=== PATIENT | male | born 1955 | race Caucasian/White ===

== ENCOUNTER → 2017-06-12 | Outpatient (CLI) | payer MEDICARE, BC ==
[~2017-06-12] MED LIST: AMBIEN 10MG10 MG PO; ASPIRIN E.C. 8181 MG PO; ATIVAN 0.50.5 MG/TAB PO; CEFTIN500 MG PO; FLEXERIL 1010 MG/TAB PO; HALCION 0.0.125 MG/T PO; KLONOPIN 0.5MG0.5 MG PO; NORCO 325 MG-51 TAB PO; VALIUM 5MG T5 MG/TAB
== END ==
LOC: COL.RAD 09:27
DX: M19.019 Primary osteoarthritis, unspecified shoulder (principal); M19.049 Primary osteoarthritis, unspecified hand; M17.9 Osteoarthritis of knee, unspecified; Z85.038 Personal history of other malignant neoplasm of large intestine
CPT/HCPCS: A9503

== ENCOUNTER → 2017-06-29 | Outpatient (CLI) | payer MEDICARE, BC ==
[~2017-06-29] VITALS: Ht 177.8 cm; Wt 82.5 kg
[2017-06-29 06:34] VITALS: BP 143/79; PULSE 66
[2017-06-29 08:10] VITALS: BP 162/91; PULSE 58
[2017-06-29 08:56] VITALS: BP 156/80; PULSE 57
== END ==
LOC: COL.RAD 06:20
DX: M54.5 Low back pain (principal); G89.29 Other chronic pain
CPT/HCPCS: J3301

== ENCOUNTER → 2017-10-25 | Outpatient (REF) ==
[2017-10-25 00:51] LABS: BASO % 0.6 % (0.0-2.0); EOS # 0.1 (0.0-0.7); EOS % 2.3 % (0-4.0); GRAN # 3.3 (1.4-6.5); GRAN % 68.2 % (42.2-75.2); HEMATOCRIT 24.1 % (42.0-52.0); HEMOGLOBIN 7.5 g/dl (13.5-18.0); LYMPH # 0.9 (1.2-3.4); LYMPH % 18.2 % (20.0-51.0); MEAN CELL VOLUME 85 fl (80.0-100.0); MEAN CORPUSCULAR HEMOGLOBIN 26 pg (27.0-31.0); MEAN CORPUSCULAR HGB CONC 31 g/dl (33.0-37.0); MEAN PLATELET VOLUME 10.3 fl (7.4-10.4); MONO # 0.5 (0.1-0.6); MONO % 9.9 % (1.7-9.3); PLATELET COUNT 350 K/mm3 (130-400); RED BLOOD COUNT 2.85 M/mm3 (4.20-5.60); WHITE BLOOD COUNT 4.8 K/mm3 (4.8-10.8)
== END ==
LOC: ZCOL.LAB 00:41
PROVIDERS: Family Medicine
DX: Z13.0 Encounter for screening for diseases of the blood and blood-forming organs and certain disorders involving the immune mechanism (principal)

== ENCOUNTER → 2017-11-01 | Outpatient (REF) ==
[2017-11-01 02:48] LABS: BASO % 0.7 % (0.0-2.0); EOS # 0.2 (0.0-0.7); EOS % 2.6 % (0-4.0); GRAN # 4.1 (1.4-6.5); LYMPH % 16.5 % (20.0-51.0); MEAN CELL VOLUME 86 fl (80.0-100.0); MEAN CORPUSCULAR HGB CONC 30 g/dl (33.0-37.0); MEAN PLATELET VOLUME 10.5 fl (7.4-10.4); MONO # 0.5 (0.1-0.6); MONO % 9.2 % (1.7-9.3); PLATELET COUNT 401 K/mm3 (130-400); RED BLOOD COUNT 3.37 M/mm3 (4.20-5.60); WHITE BLOOD COUNT 5.9 K/mm3 (4.8-10.8)
[2017-11-01 02:56] LABS: HEMATOCRIT 28.8 % (42.0-52.0); HEMOGLOBIN 8.7 g/dl (13.5-18.0); MEAN CORPUSCULAR HEMOGLOBIN 26 pg (27.0-31.0)
== END ==
LOC: ZCOL.LAB 02:44
PROVIDERS: Family Medicine
DX: D50.9 Iron deficiency anemia, unspecified (principal)

== ENCOUNTER → 2017-11-03 | Outpatient (REF) ==
[2017-11-03 06:03] LABS: HEMATOCRIT 26.6 % (42.0-52.0); HEMOGLOBIN 8.1 g/dl (13.5-18.0)
[2017-11-03 06:12] LABS: ADJUSTED CALCIUM 9.6 mg/dL (8.4-10.2); ALBUMIN 3.2 gm/dL (3.5-5.0); BILIRUBIN,TOTAL 0.3 mg/dL (0.0-1.0); CREATININE, serum 0.9 mg/dL (0.66-1.25); POTASSIUM 3.8 mmol/L (3.4-5.0); TOTAL PROTEIN 6.3 gm/dL (6.4-8.2)
== END ==
LOC: ZCOL.LAB 05:57
PROVIDERS: Family Medicine
DX: D50.9 Iron deficiency anemia, unspecified (principal); R79.89 Other specified abnormal findings of blood chemistry

== ENCOUNTER → 2017-11-08 | Outpatient (REF) ==
[2017-11-08 04:20] LABS: BASO % 0.5 % (0.0-2.0); EOS # 0.2 (0.0-0.7); EOS % 2.1 % (0-4.0); GRAN # 6.1 (1.4-6.5); GRAN % 74.3 % (42.2-75.2); LYMPH # 1.1 (1.2-3.4); LYMPH % 13.7 % (20.0-51.0); MEAN CELL VOLUME 85 fl (80.0-100.0); MEAN CORPUSCULAR HGB CONC 30 g/dl (33.0-37.0); MEAN PLATELET VOLUME 10.5 fl (7.4-10.4); MONO # 0.7 (0.1-0.6); MONO % 8.7 % (1.7-9.3); PLATELET COUNT 288 K/mm3 (130-400); RED BLOOD COUNT 3.54 M/mm3 (4.20-5.60); WHITE BLOOD COUNT 8.2 K/mm3 (4.8-10.8)
[2017-11-08 04:24] LABS: HEMOGLOBIN 9.1 g/dl (13.5-18.0); MEAN CORPUSCULAR HEMOGLOBIN 26 pg (27.0-31.0)
== END ==
LOC: ZCOL.LAB 04:15
PROVIDERS: Family Medicine
DX: D50.9 Iron deficiency anemia, unspecified (principal)

== ENCOUNTER → 2017-11-15 | Outpatient (REF) ==
[2017-11-15 03:47] LABS: BASO % 0.4 % (0.0-2.0); EOS # 0.1 (0.0-0.7); EOS % 2.1 % (0-4.0); GRAN % 71.8 % (42.2-75.2); LYMPH # 0.8 (1.2-3.4); LYMPH % 14.1 % (20.0-51.0); MEAN CELL VOLUME 83 fl (80.0-100.0); MEAN CORPUSCULAR HGB CONC 31 g/dl (33.0-37.0); MEAN PLATELET VOLUME 10.4 fl (7.4-10.4); MONO # 0.6 (0.1-0.6); MONO % 10.9 % (1.7-9.3); PLATELET COUNT 256 K/mm3 (130-400); RED BLOOD COUNT 3.28 M/mm3 (4.20-5.60); WHITE BLOOD COUNT 5.6 K/mm3 (4.8-10.8)
[2017-11-15 03:51] LABS: HEMATOCRIT 27.3 % (42.0-52.0); HEMOGLOBIN 8.5 g/dl (13.5-18.0); MEAN CORPUSCULAR HEMOGLOBIN 26 pg (27.0-31.0)
== END ==
LOC: ZCOL.LAB 03:43
PROVIDERS: Family Medicine
DX: R79.89 Other specified abnormal findings of blood chemistry (principal)

== ENCOUNTER 2017-12-08 06:25 | Day surgery (SDC) | payer MEDICARE, BC ==
[~2017-12-08] VITALS: Ht 180.3 cm; Wt 78.8 kg
[2017-12-08] VITALS (7 sets, daily range): BP systolic 105–149; BP diastolic 39–86; PULSE 65–92; TEMP 97.3–99.4
[2017-12-08] MEDS ORDERED: DAZIDOX10 MG PO (07:41)
[2017-12-08] MEDS ORDERED: AMITRIPTYLINE H25 M1 PO (07:43)
[2017-12-08] MEDS ORDERED: INDERAL 10MG10 MG PO (07:44)
[2017-12-08] MEDS ORDERED: FLOMAX 0.40.4 MG/CAP PO (07:44)
[2017-12-08] MEDS ORDERED: MIRALAX PA17 GM/Dose PO (07:45)
[2017-12-08] MEDS ORDERED: REMERON30 MG PO (07:45)
[2017-12-08] MEDS ORDERED: PROTONIX40 MG/Pack PO (07:46)
[2017-12-08] MEDS ORDERED: ASPIRIN 81M81 MG/TA2 PO (07:48)
[2017-12-08] MEDS ORDERED: SYMMETREL100 M1 PO (07:49)
[2017-12-08] MEDS ORDERED: XANAX 0.5MG0.5 MG PO (07:50)
[2017-12-08] MEDS ORDERED: SINEMET 10/101 UDTAB PO (07:51)
== END 2017-12-08 11:29 | disposition home or self-care (01) ==
LOC: SDCO 06:25
DX: N13.30 Unspecified hydronephrosis (principal); D50.9 Iron deficiency anemia, unspecified; J44.9 Chronic obstructive pulmonary disease, unspecified; I10 Essential (primary) hypertension; G20 Parkinson's disease; F32.9 Major depressive disorder, single episode, unspecified; I73.9 Peripheral vascular disease, unspecified; Z85.038 Personal history of other malignant neoplasm of large intestine; Z87.891 Personal history of nicotine dependence
CPT/HCPCS: C1769; C2617; J0690; J1100; J2405; J2704; J3010; J7120; Q9967

== ENCOUNTER 2018-03-23 06:33 | Day surgery (SDC) | payer MEDICARE, BC ==
[~2018-03-23] VITALS: Ht 177.8 cm; Wt 88.1 kg
[~2018-03-23 06:33] MED LIST changes: +AMITRIPTYLINE H25 M1 PO; +ASPIRIN 81M81 MG/TA2 PO; +DAZIDOX10 MG PO; +FLOMAX 0.40.4 MG/CAP PO; +INDERAL 10MG10 MG PO; +MIRALAX PA17 GM/Dose PO; +PROTONIX40 MG/Pack PO; +REMERON30 MG PO; +SINEMET 10/101 UDTAB PO; +SYMMETREL100 M1 PO; +XANAX 0.5MG0.5 MG PO
[2018-03-23 07:28] VITALS: BP 151/72; PULSE 72; TEMP 97.5
[2018-03-23 09:50] VITALS: BP 161/84; PULSE 67
[2018-03-23 10:05] VITALS: BP 135/90; PULSE 65
[2018-03-23 10:17] VITALS: TEMP 97.4
[2018-03-23 10:20] VITALS: BP 129/82; PULSE 67
== END 2018-03-23 11:10 | disposition home or self-care (01) ==
LOC: SDCO 06:33
DX: N13.1 Hydronephrosis with ureteral stricture, not elsewhere classified (principal); D64.9 Anemia, unspecified; J44.9 Chronic obstructive pulmonary disease, unspecified; I10 Essential (primary) hypertension; G20 Parkinson's disease; I73.9 Peripheral vascular disease, unspecified; G62.9 Polyneuropathy, unspecified; F32.9 Major depressive disorder, single episode, unspecified; F41.9 Anxiety disorder, unspecified; Z93.3 Colostomy status; Z79.82 Long term (current) use of aspirin; Z87.891 Personal history of nicotine dependence; Z85.048 Personal history of other malignant neoplasm of rectum, rectosigmoid junction, and anus; Z85.038 Personal history of other malignant neoplasm of large intestine
CPT/HCPCS: C1769; C2617; J0690; J1100; J1885; J2405; J2704; J3010; J7120

== ENCOUNTER → 2018-07-09 | Outpatient (CLI) | payer MEDICARE, BC ==
[~2018-07-09] VITALS: Ht 177.8 cm; Wt 90.9 kg
[2018-07-09 09:22] VITALS: BP 148/88; PULSE 71
[2018-07-09 10:45] VITALS: BP 137/87; PULSE 69
== END ==
LOC: COL.RAD 08:45
DX: M54.5 Low back pain (principal); M47.9 Spondylosis, unspecified; M48.00 Spinal stenosis, site unspecified; M53.9 Dorsopathy, unspecified
CPT/HCPCS: J3301

== ENCOUNTER 2018-08-02 11:01 | Day surgery (SDC) | payer MEDICARE, BC ==
[~2018-08-02] VITALS: Ht 180.3 cm; Wt 90.5 kg
[2018-08-02 11:37] VITALS: BP 163/80; PULSE 83; TEMP 97.4
[2018-08-02 14:20] VITALS: BP 157/85; PULSE 64; TEMP 97.4
[2018-08-02 14:35] VITALS: BP 139/68; PULSE 63
[2018-08-02 14:50] VITALS: BP 158/85; PULSE 63
== END 2018-08-02 15:33 | disposition home or self-care (01) ==
LOC: SDCO 11:01
DX: N13.1 Hydronephrosis with ureteral stricture, not elsewhere classified (principal); D64.9 Anemia, unspecified; J44.9 Chronic obstructive pulmonary disease, unspecified; I10 Essential (primary) hypertension; G20 Parkinson's disease; R94.5 Abnormal results of liver function studies; G62.9 Polyneuropathy, unspecified; I73.9 Peripheral vascular disease, unspecified; F32.9 Major depressive disorder, single episode, unspecified; F41.9 Anxiety disorder, unspecified; Z79.82 Long term (current) use of aspirin; Z90.49 Acquired absence of other specified parts of digestive tract; Z85.048 Personal history of other malignant neoplasm of rectum, rectosigmoid junction, and anus; Z92.21 Personal history of antineoplastic chemotherapy; Z85.038 Personal history of other malignant neoplasm of large intestine; Z87.891 Personal history of nicotine dependence; Z87.442 Personal history of urinary calculi
CPT/HCPCS: C1769; C2617; J0690; J2704; J3010; J7120

== ENCOUNTER → 2018-09-07 | Outpatient (CLI) | payer MEDICARE, BC ==
[~2018-09-07] VITALS: Ht 180.3 cm; Wt 90.1 kg
[~2018-09-07] MED LIST changes: +OMNICEF 300MG300 MG PO
[2018-09-07 12:10] VITALS: BP 153/80; PULSE 79
[2018-09-07 13:04] VITALS: BP 127/79; PULSE 78
== END ==
LOC: COL.RAD 11:45
DX: M47.816 Spondylosis without myelopathy or radiculopathy, lumbar region (principal); M48.061 Spinal stenosis, lumbar region without neurogenic claudication; M51.26 Other intervertebral disc displacement, lumbar region
CPT/HCPCS: J3301

== ENCOUNTER → 2019-06-19 | Outpatient (CLI) | payer MEDICARE, BC ==
--- NOTE | 2019-06-18 08:56 | NUR ---
unable to contact pt. left a msg on the cell phone of his contact center assistant with phone number.
--- NOTE | 2019-06-18 12:54 | NUR ---
BLOODY NOSE FAIRLY CONSISTANTLY.
[~2019-06-19] VITALS: Ht 180.3 cm; Wt 86.4 kg
[2019-06-19] VITALS (9 sets, daily range): BP systolic 102–148; BP diastolic 63–86; PULSE 61–75
[~2019-06-19] MED LIST changes: +AMOXICILLIN 8751 TAB PO
[2019-06-19 12:36] LABS: PROTHROMBIN TIME 12.1 SECONDS (9.7-12.8)
--- NOTE | 2019-06-19 15:15 | NUR ---
DR MENDOSA CALLED AND SPOKE TO DR DAVILA REGARDING PT
--- NOTE | 2019-06-19 15:35 | NUR ---
PT DRESSED GIVEN MUFFIN AND JUICE
--- NOTE | 2019-06-19 15:36 | NUR ---
PT TAKEN TO CT AND PLACED ON BED. MONITORING EQUIPMENT ON PT. IMAGES DONE. TIME OUT DONE.
--- NOTE | 2019-06-19 15:45 | NUR ---
DR MENDOSA REQUESTED PT TO HAVE ULTRASOUND DONE TO SEE IF WE CAN GAIN ACCESS WITH THE ULTRASOUND
--- NOTE | 2019-06-19 15:45 | NUR ---
LIDOCAINE ADMINISTERED.
== END ==
LOC: COL.RAD 11:59
PROVIDERS: Internal Medicine
DX: C19 Malignant neoplasm of rectosigmoid junction (principal); K76.9 Liver disease, unspecified

== ENCOUNTER → 2019-07-15 | Outpatient (CLI) | payer MEDICARE, BC | LOC: COL.RAD 09:30 | DX: C19 Malignant neoplasm of rectosigmoid junction (principal); N13.30 Unspecified hydronephrosis; K76.0 Fatty (change of) liver, not elsewhere classified; K76.89 Other specified diseases of liver | CPT/HCPCS: A9585 ==

== ENCOUNTER → 2019-09-12 | Outpatient (CLI) | payer MEDICARE, BC ==
[~2019-09-12] VITALS: Ht 180.3 cm; Wt 87.5 kg
[2019-09-12] VITALS (7 sets, daily range): BP systolic 114–172; BP diastolic 79–99; PULSE 70–91
--- NOTE | 2019-09-12 12:48 | NUR ---
PT WAS TAKEN TO CT LAB AND PLACED ON THE CT TABLE. MONITORING EQUIPMENT PLACED ON PT. IMAGES TAKEN.
--- NOTE | 2019-09-12 13:14 | NUR ---
SMALL AMT OF PURULENT DRAINAGED REMOVED AND SENT TO LAB. MONITORING EQUIPMENT REMOVED. SITE IS CDI WITH BANDAIDE PRESENT. PT GETS OFF THE TABLE PER SELF AND SITS IN WHEELCHAIR. NO MEDS GIVEN.
--- NOTE | 2019-09-12 13:56 | NUR ---
PT TAKEN DOWN TO [facility]. HIS FRIEND IS PICKING HIM UP,
== END ==
LOC: COL.RAD 11:57
DX: L02.91 Cutaneous abscess, unspecified (principal)

== ENCOUNTER 2020-05-31 11:38 | Emergency (ER) | payer MEDICARE, BC ==
[~2020-05-31] VITALS: Ht 180.3 cm; Wt 80.0 kg
[2020-05-31 12:47] LABS: MEAN CELL VOLUME 78 fl (80.0-100.0); MEAN CORPUSCULAR HEMOGLOBIN 25 pg (27.0-31.0); MEAN CORPUSCULAR HGB CONC 33 g/dl (33.0-37.0); PLATELET COUNT 392 K/mm3 (130-400); RED BLOOD COUNT 3.95 M/mm3 (4.20-5.60); REDCELL DISTRIBUTION WIDTH-CV 16.7 % (11.5-14.5)
[2020-05-31 12:48] LABS: HEMATOCRIT 30.6 % (42.0-52.0)
[2020-05-31 12:58] LABS: ALBUMIN 3.3 gm/dL (3.5-5.0); BILIRUBIN,TOTAL 2.1 mg/dL (0.0-1.0); CALCIUM 8.2 mg/dL (8.4-10.2); CREATININE, serum 3.4 (0.66-1.25); POTASSIUM 4.2 mmol/L (3.4-5.0)
[2020-05-31 13:09] LABS: C-REACTIVE PROTEIN 24.5 mg/dL (0.0-0.9)
[2020-05-31 13:39] LABS: BAND 20 % (0-10); NEUTROPHILS 70 % (42.0-75.2)
[2020-05-31 13:40] LABS: ANISOCYTOSIS 1+; HYPOCHROMIA 1+; MICROCYTOSIS 1+; PLATELET ESTIMATE NORMAL (NORMAL)
[2020-05-31 13:41] LABS: LYMPHOCYTE 4 % (20.0-51.0)
[2020-05-31 14:41] LABS: COLLECTION METHOD CLEAN CATCH
[2020-05-31 14:53] LABS: MUCOUS Present /lpf; PH 6 (5-8); SQUAMOUS EPITHELIAL 0-2 /hpf; URINE APPEARANCE Cloudy; URINE BACTERIA Occasional /hpf; URINE BILIRUBIN Negative (NEGATIVE); URINE BLOOD 1+ (NEGATIVE); URINE COLOR Amber; URINE GLUCOSE Negative (NEGATIVE); URINE KETONE Negative (NEGATIVE); URINE LEUKOCYTE ESTERASE 3+ (NEGATIVE); URINE NITRATE Negative (NEGATIVE); URINE PROTEIN(semi-quant) 1+ (NEGATIVE); URINE RBC 0-2 /hpf
[2020-05-31] MEDS ORDERED: XANAX 0.5MG0.5 MG PO (17:07)
[2020-05-31 17:15] VITALS: BP 103/71; PULSE 117; TEMP 98.7
== END 2020-05-31 17:25 | disposition short-term general hospital (02) ==
LOC: COL.ER 11:38
PROVIDERS: Emergency Medicine
DX: N17.9 Acute kidney failure, unspecified (principal); K52.9 Noninfective gastroenteritis and colitis, unspecified; N39.0 Urinary tract infection, site not specified; G20 Parkinson's disease; Z96.0 Presence of urogenital implants
CPT/HCPCS: J1170; J1885; J2405; J2543; J7030

== ENCOUNTER 2020-06-22 08:33 | Emergency (ER) | payer MEDICARE, BC ==
[~2020-06-22] VITALS: Ht 180.3 cm; Wt 80.9 kg
[2020-06-22 08:51] VITALS: TEMP 99.9
[2020-06-22 09:21] LABS: BASO % 0.2 % (0.0-2.0); EOS % 0.2 % (0-4.0); GRAN # 7.3 (1.4-6.5); GRAN % 84.3 % (42.2-75.2); LYMPH # 0.4 (1.2-3.4); LYMPH % 4.4 % (20.0-51.0); MEAN CELL VOLUME 81 fl (80.0-100.0); MEAN CORPUSCULAR HGB CONC 31 g/dl (33.0-37.0); MEAN PLATELET VOLUME 9.9 fl (7.4-10.4); MONO # 0.9 (0.1-0.6); MONO % 10.4 % (1.7-9.3); PLATELET COUNT 500 K/mm3 (130-400); REDCELL DISTRIBUTION WIDTH-CV 17.3 % (11.5-14.5)
[2020-06-22 09:24] LABS: HEMATOCRIT 26.8 % (42.0-52.0); HEMOGLOBIN 8.4 g/dl (13.5-18.0); MEAN CORPUSCULAR HEMOGLOBIN 25 pg (27.0-31.0)
[2020-06-22 09:28] LABS: INR 1.3 (0.8-3.0); PROTHROMBIN TIME 14.6 SECONDS (9.7-12.8)
[2020-06-22 09:35] LABS: ALBUMIN 3.3 gm/dL (3.5-5.0); BILIRUBIN,TOTAL 1.7 mg/dL (0.0-1.0); CALCIUM 8.2 mg/dL (8.4-10.2); CREATININE, serum 2.19 (0.66-1.25); POTASSIUM 3.5 mmol/L (3.4-5.0); TOTAL PROTEIN 7.2 gm/dL (6.4-8.2)
[2020-06-22 09:49] LABS: C-REACTIVE PROTEIN 15.8 mg/dL (0.0-0.9)
[2020-06-22 10:09] LABS: COLLECTION METHOD CLEAN CATCH
[2020-06-22 10:25] LABS: MUCOUS Present /lpf; PH 5 (5-8); SQUAMOUS EPITHELIAL 0-2 /hpf; URINE APPEARANCE Cloudy; URINE BACTERIA Rare /hpf; URINE BILIRUBIN Negative (NEGATIVE); URINE BLOOD 1+ (NEGATIVE); URINE COLOR Yellow; URINE GLUCOSE Negative (NEGATIVE); URINE KETONE Negative (NEGATIVE); URINE LEUKOCYTE ESTERASE 3+ (NEGATIVE); URINE NITRATE Positive (NEGATIVE); URINE PROTEIN(semi-quant) 1+ (NEGATIVE); URINE UROBILINOGEN Negative (NEGATIVE)
[2020-06-22 11:33] LABS: CLOSTRIDIUM DIFF A/B POS; CLOSTRIDIUM DIFF A/B INTERP Toxigenic C.diff POS
[2020-06-22] MEDS ORDERED: ASPIRIN 81M81 MG/TA2 PO (12:17)
[2020-06-22 16:09] VITALS: BP 136/75; PULSE 85
== END 2020-06-22 16:10 | disposition short-term general hospital (02) ==
LOC: COL.ER 08:33
PROVIDERS: Physician Assistant
DX: A04.71 Enterocolitis due to Clostridium difficile, recurrent (principal); N39.0 Urinary tract infection, site not specified; N18.9 Chronic kidney disease, unspecified; D63.1 Anemia in chronic kidney disease; G20 Parkinson's disease; Z79.82 Long term (current) use of aspirin; Z85.038 Personal history of other malignant neoplasm of large intestine; Z93.2 Ileostomy status; Z93.3 Colostomy status
CPT/HCPCS: J0690; J1170; J2270; J7030

== ENCOUNTER → 2021-03-16 | Outpatient (CLI) | payer MEDICARE, BC ==
[~2021-03-16] MED LIST changes: +ATARAX 25MG25 MG/TAB PO
== END ==
LOC: COL.RAD 13:19
DX: R17 Unspecified jaundice (principal); R74.8 Abnormal levels of other serum enzymes

== ENCOUNTER 2021-03-30 18:01 | Emergency (ER) | payer MEDICARE, BC ==
[~2021-03-30] VITALS: Ht 180.3 cm; Wt 75.0 kg
[~2021-03-30 18:01] MED LIST changes: -ATARAX 25MG25 MG/TAB PO
[2021-03-30 18:50] LABS: BASO % 0.4 % (0.0-2.0); EOS % 0.4 % (0-4.0); GRAN # 7.9 (1.4-6.5); GRAN % 88.1 % (42.2-75.2); LYMPH # 0.5 (1.2-3.4); LYMPH % 5.8 % (20.0-51.0); MEAN CELL VOLUME 76 fl (80.0-100.0); MEAN CORPUSCULAR HGB CONC 31 g/dl (33.0-37.0); MEAN PLATELET VOLUME 10.8 fl (7.4-10.4); MONO # 0.4 (0.1-0.6); MONO % 4.7 % (1.7-9.3); PLATELET COUNT 457 K/mm3 (130-400); RED BLOOD COUNT 4.06 M/mm3 (4.20-5.60)
[2021-03-30 18:51] LABS: HEMATOCRIT 30.8 % (42.0-52.0); HEMOGLOBIN 9.5 g/dl (13.5-18.0); MEAN CORPUSCULAR HEMOGLOBIN 23 pg (27.0-31.0)
[2021-03-30] MEDS ORDERED: ATARAX 25MG25 MG/TAB PO (19:02)
[2021-03-30] MEDS ORDERED: FLOMAX 0.40.4 MG/CAP PO (19:03)
[2021-03-30 19:25] LABS: BILIRUBIN,TOTAL 9.3 mg/dL (0.0-1.0); CREATININE, serum 2.39 (0.66-1.25); POTASSIUM 3.9 mmol/L (3.4-5.0); TOTAL PROTEIN 8.8 gm/dL (6.4-8.2)
[2021-03-30 20:02] LABS: INR 1.4 (0.8-3.0); PROTHROMBIN TIME 15.7 SECONDS (9.7-12.8)
[2021-03-30 23:10] VITALS: BP 173/80; PULSE 77; TEMP 98.7
== END 2021-03-30 23:10 | disposition short-term general hospital (02) ==
LOC: COL.ER 18:01
PROVIDERS: Emergency Medicine; Nurse Practitioner Primary Care
DX: K72.90 Hepatic failure, unspecified without coma (principal); G20 Parkinson's disease; Z85.038 Personal history of other malignant neoplasm of large intestine; Z87.891 Personal history of nicotine dependence; Z90.49 Acquired absence of other specified parts of digestive tract
CPT/HCPCS: J1170; J1200; J7030